=== PATIENT | male | born 1990 | race Caucasian/White ===

== ENCOUNTER → 2021-07-30 | Day surgery (SDC) | payer OTHER ==
[~2021-07-30] VITALS: Ht 188 cm; Wt 83.9 kg
[2021-07-30] VITALS (10 sets, daily range): BP systolic 115–188; BP diastolic 75–94
[~2021-07-30] MED LIST: ACET-685 PO; ALPR2TAB2 PO; CETI10TA77 PO; DECADRON ONE; DILAUDID ONE; DIPRIVAN IV ONE; LACTATED RINGERS 1,000 ML IV SCH; LACTATED RINGERS 1,000 ML ONE; LIDOCAINE 1% VIAL ONE; SODIUM CHLORIDE IRR BOTTLE IR ONE; SUBLIMAZE ONE; TORADOL ONE; TYLENOL #3 PO ONE; XYLOCAINE 1%-EPI 1:100,000 ONE; ZOFRAN ONE
[2021-07-30 09:05] LABS: BASOPHIL % 0.9 % (0.0-0.2); EOSINOPHIL # 0.1 10^3/uL (0.0-0.2); EOSINOPHIL % 3.3 % (0.0-5.0); LYMPHOCYTES # 0.6 10^3/uL1 (1.0-4.8); MEAN CORP HGB 29.2 pg (26-34); MONOCYTES # 0.5 10^3/uL (0.3-0.8); MONOCYTES % 10.5 % (5.0-12.0); NEUTROPHIL # 3.1 10^3/uL (1.8-7.7); NEUTROPHILS % 71.3 % (41.0-85.0); RED CELL DISTRIBUTION WIDTH 12.2 % (11.5-14.5)
[2021-07-30 09:24] LABS: CARBON DIOXIDE 29.1 mmol/L (20.0-32)
[2021-07-30] MEDS: DILAUDID IV PRN ×2 (11:30→11:35)
--- NOTE | 2021-07-30 11:45 | OPH ---
DATE OF SURGERY: 07/30/2021 DICTATOR NAME: Per Herrera MD PREOPERATIVE DIAGNOSIS: Painful hardware, right fifth metacarpal. POSTOPERATIVE DIAGNOSIS: Painful hardware, right fifth metacarpal. OPERATIVE PROCEDURE: Deep hardware removal, right fifth metacarpal. SURGEON: Per Herrera MD ANESTHESIA: LMA. TOURNIQUET TIME: None. BLOOD LOSS: 10 mL. DESCRIPTION OF INDICATIONS: The patient is a 31-year-old male who had closed reduction and percutaneous pinning of a displaced fifth metacarpal neck fracture several years ago. The patient never returned for hardware removal. He was seen in the office last week complaining of pain about the fingers as well as restricted motion about the MCP joint. The x-ray showed that he had healed fifth metacarpal neck fracture with retained hardware. He wanted the hardware removed. DESCRIPTION OF PROCEDURE: The patient was placed in the operating table in the supine position. LMA anesthetic was induced without difficulty. The patient had the right upper extremity sterilely prepped and draped. The patient had the area injected with lidocaine with epinephrine. Incision was taken dorsally over the MCP joint down to the capsule. The extensor tendon and the capsule were opened and elevated medially and laterally. The tips of the pins were then identified and removed with the rongeur. The wounds were then copiously irrigated. The finger was manipulated down to 90 degrees of flexion. The patient had the extensor tendon closed with interrupted 4-0 Prolene. The skin and subcutaneous were closed with interrupted 3-0 Ethilon. Compressive dressing was applied consisting of Adaptic, 4 x 4's, cast padding and Dom wrap. He was extubated in the operating room and sent to recovery in stable condition. Per Herrera MD DR: KALYN/ADELE TID: [id number] RECEIPT: [id number]
== END | disposition home or self-care (01) ==
LOC: SURG 08:10
PROVIDERS: ATTEND Orthopaedic Surgery
DX: T84.84XA Pain due to internal orthopedic prosthetic devices, implants and grafts, initial encounter (principal); Z87.81 Personal history of (healed) traumatic fracture; Z98.890 Other specified postprocedural states; Y83.1 Surgical operation with implant of artificial internal device as the cause of abnormal reaction of the patient, or of later complication, without mention of misadventure at the time of the procedure
CPT/HCPCS: 20680; 36415; 80053; 85025; A4217; A4649; J1100; J1170 ×2; J1885; J2001; J2405; J3010; J3490 ×2; J7120; 76000